=== PATIENT | female | born 1970 | race Caucasian/White ===

== ENCOUNTER 2023-07-01 09:59 | Day surgery (SDC) | payer OTHER ==
[~2023-07-01] VITALS: Ht 152.4 cm; Wt 64.9 kg
[2023-07-01] MEDS ORDERED: diphenhydrAMINE 50 MG/ML VIAL ONE (11:08)
[2023-07-01] MEDS ORDERED: fentaNYL citrate 0.05 MG/ML VIAL ONE (11:09)
[2023-07-01] MEDS ORDERED: MIDAZOLAM 2 MG/2 ML VIAL ONE (11:09)
== END 2023-07-01 12:52 | disposition home or self-care (01) ==
LOC: MDS 09:59 → MMU 10:00 → MDS 12:52
PROVIDERS: ATTEND Internal Medicine Gastroenterology
DX: Z12.11 Encounter for screening for malignant neoplasm of colon (principal); D12.2 Benign neoplasm of ascending colon; E78.5 Hyperlipidemia, unspecified; Z79.899 Other long term (current) drug therapy
CPT/HCPCS: 45385; 88305; J2250; J3010; J7030; J1200